=== PATIENT | female | born 1975 | race Caucasian/White ===

== ENCOUNTER 2018-10-31 00:48 | Emergency (ER) | payer SELFPAY ==
[~2018-10-31] VITALS: Ht 170.2 cm; Wt 104.3 kg
[2018-10-31 00:56] VITALS: Ht 170.2 cm; Wt 104.3 kg
[2018-10-31 03:48] VITALS: BP 130/84
== END 2018-10-31 03:48 | disposition other institution (70) ==
LOC: ED 00:48
DX: L02.31 Cutaneous abscess of buttock (principal); Z88.5 Allergy status to narcotic agent
CPT/HCPCS: J2001

== ENCOUNTER 2018-10-31 00:48 | Emergency (ER) | payer OTHER | END 2018-10-31 03:48 | disposition other institution (70) | LOC: ED 00:48 | DX: Z02.89 Encounter for other administrative examinations (principal) ==